=== PATIENT | female | born 1985 | race Caucasian/White ===

== ENCOUNTER 2022-12-09 09:14 | Outpatient (CLI) | payer MEDICAID | END 2022-12-09 09:15 | disposition critical access hospital (66) | LOC: EMS 09:14 | DX: R51.9 Headache, unspecified (principal); H53.149 Visual discomfort, unspecified | CPT/HCPCS: A0425; A0429 ==

== ENCOUNTER 2022-12-09 09:38 | Emergency (ER) | payer MEDICAID, OTHER ==
[2022-12-09] MEDS ORDERED: KETOROLAC 15 MG/ML VIAL IVP STA (09:52)
[2022-12-09] MEDS ORDERED: SODIUM CHLORIDE 0.9% 1,000 ML IV STA (09:52)
[2022-12-09] MEDS ORDERED: diphenhydrAMINE INJ 50 MG/ML VIAL IVP STA (09:52)
[2022-12-09] MEDS ORDERED: METOCLOPRAMIDE 10 MG/2 ML VIAL IVP STA (09:52)
--- NOTE | 2022-12-09 09:53 | ED Physician Documentation ---
History of Present Illness - Stated complaint Stated Complaint: HEADACHE - Chief complaint Chief Complaint: General - History obtained from History obtained from: Patient, EMS - Additonal information Additional information: 37-year-old woman with history of fentanyl abuse By insufflation with last use last night presented to detox ([facility]) this morning and was referred here for constant gradual onset headache of 4 days duration. She has no history of migraines or other primary headache diagnosis. Denies fevers or chills. No head injury. She is light sensitive with it. She is not nauseous. Has not tried anything for it. PD PAST MEDICAL HISTORY - Present Medications Home Medications: Ambulatory Orders Medication Instructions Recorded Confirmed No Known Home Medications 12/09/22 12/09/22 - Allergies Allergies/Adverse Reactions: Allergies Allergy/AdvReac Type Severity Reaction Status Date / Time No Known Drug Allergies Allergy Verified 12/09/22 09:51 PD ED PE NORMAL - Vitals Vital signs reviewed: Yes - General General: Alert and oriented X 3, Other (She appears uncomfortable and light sensitive) - HEENT HEENT: PERRL, EOMI - Neck Neck: Supple, no meningeal sign, No bony TTP - Neuro Neuro: Alert and oriented X 3, edge roller 2-12 intact Eye Opening: Spontaneous Motor: Obeys Commands Verbal: Oriented GCS Score: 15 - Psych Psych: Normal mood, Normal affect Results - Vitals Vitals: Vital Signs - 24 hr 12/09/22 09:39 Temperature 37.1 C Heart Rate 102 H Respiratory 18 Rate Blood Pressure 97/61 O2 Saturation 97 Oxygen O2 Source Room air - Rads (name of study) CT of the head is unremarkable Relevant Findings:: Final report received, EMP independent interpretation of test PD Medical Decision Making - ED course ED course: 37-year-old woman with 4 days of headache. No underlying chronic headache syndrome. Nothing in the history or physical to really suggest subarachnoid hemorrhage or meningitis. No fevers or neck stiffness. She says she was at another hospital a few days ago and an LP was recommended and refused. I have a low pretest probability for meningitis or subarachnoid hemorrhage. CT was done and normal. We discussed an LP but she refused here to, but given the low pretest probability I think this is okay. She was initially treated with IV Reglan, Benadryl, Toradol, and fluids and she had only modest relief. Subsequently received subcutaneous Imitrex and 2 mg of IV Dilaudid with actually pretty good relief. Departure - Departure Disposition: 01 Home, Self Care Clinical Impression: Fentanyl dependence Headache Qualifiers: Headache type: unspecified Headache chronicity pattern: acute headache Intractability: not intractable Qualified Code(s): R51.9 - Headache, unspecified Condition: Good Record reviewed to determine appropriate education?: Yes Instructions: ED Cephalgia Unspecified Comments: Go directly back to detox. Return for new or worsening symptoms. Follow-up with your primary care physician after discharge from detox. Forms: PCP List
[2022-12-09] MEDS ORDERED: HYDROmorphone 1 MG/ML CARPUJECT IVP STA (10:58)
[2022-12-09] MEDS ORDERED: SUMAtriptan 6 MG/0.5 ML VIAL SUBQ STA (10:58)
--- NOTE | 2022-12-09 11:03 | CT Report ---
PROCEDURE: HEAD WO INDICATIONS: headache TECHNIQUE: Noncontrast 4.5 mm thick angled axial sections acquired from the foramen magnum to the vertex. For r adiation dose reduction, the following was used: automated exposure control, adjustment of mA and/or kV according to patient size. COMPARISON: None. FINDINGS: Image quality: Excellent. CSF spaces: Basal cisterns are patent. No extra-axial fluid collections. Ventricles are normal in size and shape. Brain: No midline shift. No intracranial masses or hemorrhage. Rivera-white matter interface is norm al. Skull and face: Calvarium and visualized facial bones are intact, without suspicious lesions. Sinuses: Visualized sinuses demonstrate trace mucosal thickening.. IMPRESSION: No acute intracranial pathology. Reviewed by: Eli Laughlin MD on 12/09/2022 11:01 AM PDT Approved by: Eli Laughlin MD on 12/09/2022 11:01 AM PDT Station ID: [id number]
[2022-12-09 13:16] VITALS: BP 97/60; O2SAT 99
== END 2022-12-09 13:11 | disposition home or self-care (01) ==
LOC: ED 09:38
DX: F11.20 Opioid dependence, uncomplicated (principal); R51.9 Headache, unspecified
CPT/HCPCS: 70450; 96372; 96374; 96375; 99284; J1170; J1200; J2765